=== PATIENT | male | born 1960 | race Caucasian/White ===

== ENCOUNTER → 2019-02-03 | Outpatient (REF) | payer OTHER | LOC: M LAB REF 17:00 | PROVIDERS: ATTEND Physician Assistant | DX: M86.079 Acute hematogenous osteomyelitis, unspecified ankle and foot (principal) ==

== ENCOUNTER → 2019-02-10 | Outpatient (REF) | payer OTHER | LOC: M SFHCPLAZ 09:06 | PROVIDERS: ATTEND Internal Medicine Infectious Disease | DX: Z53.9 Procedure and treatment not carried out, unspecified reason (principal); M86.9 Osteomyelitis, unspecified; E11.43 Type 2 diabetes mellitus with diabetic autonomic (poly)neuropathy ==

== ENCOUNTER → 2025-02-16 | Outpatient (CLI) | payer MEDICARE, OTHER | LOC: M RAD 08:45 | PROVIDERS: ATTEND Internal Medicine Gastroenterology | DX: K76.0 Fatty (change of) liver, not elsewhere classified (principal); K80.20 Calculus of gallbladder without cholecystitis without obstruction ==

== ENCOUNTER → 2025-04-13 | Outpatient (CLI) | payer MEDICARE, OTHER | LOC: M PLARAD 10:30 | PROVIDERS: ATTEND Internal Medicine Gastroenterology | DX: K76.0 Fatty (change of) liver, not elsewhere classified (principal); K76.89 Other specified diseases of liver ==

== ENCOUNTER → 2025-07-14 | Outpatient (CLI) | payer MEDICARE, OTHER ==
[2025-07-14 13:38] LABS: ALT/SGPT 25 U/L (7.0-40); AST/SGOT 15 U/L (<34); INR 0.95
[2025-07-17 09:42] LABS: ALPHA 1 ANTITRYPSIN 132 mg/dL (83-199); CERULOPLASMIN 24.0 mg/dL (14-30)
[2025-07-17 12:31] LABS: ANTI-MITOCHONDRIAL ANTIBODY NEGATIVE (NEGATIVE)
[2025-07-20 02:42] LABS: ANTI-SMOOTH MUSCLE ANTIBODY < 20 U (<20)
[2025-07-20 13:58] LABS: ALPHA 2-MACROGLOBULINS,QN 177 mg/dL (106-279); ALT (SGPT) P5P 20 U/L (9-46); APOLIPOPROTEIN A-1 154 mg/dL (94-176); FIBROSIS SCORE 0.14; FIBROSIS STAGE NO FIBROSIS (F0); GGT 29 U/L (3-70); HAPTOGLOBIN 312 mg/dL (43-212); NECROINFLAM ACT GRADE NO ACTIVITY (A0); NECROINFLAM ACT SCORE 0.06
[2025-07-21 13:11] LABS: IMMUNOGLOBULIN A CELIAC 527 mg/dL (70-320)
== END ==
LOC: M PLALAB 09:11
PROVIDERS: ATTEND Internal Medicine Gastroenterology
DX: K76.0 Fatty (change of) liver, not elsewhere classified (principal)

== ENCOUNTER → 2025-08-02 | Outpatient (CLI) | payer MEDICARE, OTHER | LOC: M RAD 08:35 | PROVIDERS: ATTEND Physician Assistant | DX: K76.0 Fatty (change of) liver, not elsewhere classified (principal); K76.89 Other specified diseases of liver; R93.2 Abnormal findings on diagnostic imaging of liver and biliary tract ==